=== PATIENT | female | born 1995 | race African-American/Black ===

== ENCOUNTER 2020-06-04 03:09 | Emergency (ER) | payer MEDICAID ==
[~2020-06-04] VITALS: Ht 180.3 cm; Wt 72.7 kg
[2020-06-04] MEDS ORDERED: PERTUSS(ACELL),DIPH,TET VAC/PF 0.5 ML VIAL IM ONE (03:45)
[2020-06-04] MEDS ORDERED: KETOROLAC TROMETHAMINE 30 MG/ML VIAL IM ONE (03:45)
[2020-06-04 04:25] VITALS: BP 117/78
== END 2020-06-04 04:50 | disposition home or self-care (01) ==
LOC: EMS 03:09
DX: S51.801A Unspecified open wound of right forearm, initial encounter (principal); F17.210 Nicotine dependence, cigarettes, uncomplicated; F12.90 Cannabis use, unspecified, uncomplicated; W34.010A Accidental discharge of airgun, initial encounter; Y93.89 Activity, other specified; Y92.89 Other specified places as the place of occurrence of the external cause; Y99.8 Other external cause status
CPT/HCPCS: 73090; 90471; 90715; 96372; 99284; 99406; J1885